=== PATIENT | female | born 1990 | race Two or more races ===

== ENCOUNTER 2018-03-14 21:36 | Emergency (ER) | payer OTHER ==
[~2018-03-14] VITALS: Ht 167.6 cm; Wt 93.9 kg
[2018-03-15] MEDS ORDERED: MIRALAX510 GM PO (06:15)
== END 2018-03-15 06:23 ==
LOC: ER 21:36
DX: K59.09 Other constipation (principal)

== ENCOUNTER 2018-04-21 14:30 | Emergency (ER) | payer OTHER ==
[~2018-04-21] VITALS: Ht 167.6 cm; Wt 96.6 kg
[~2018-04-21 14:30] MED LIST: MIRALAX510 GM PO
[2018-04-21] MEDS ORDERED: PRENATABS FA T1 EACH (14:52)
== END 2018-04-21 23:56 | disposition home or self-care (01) ==
LOC: ER 14:30
DX: O26.892 Other specified pregnancy related conditions, second trimester (principal); R10.2 Pelvic and perineal pain; O23.32 Infections of other parts of urinary tract in pregnancy, second trimester; Z34.02 Encounter for supervision of normal first pregnancy, second trimester

== ENCOUNTER 2018-09-29 02:58 | Inpatient (IN) | payer OTHER ==
[~2018-09-29] VITALS: Ht 167.6 cm; Wt 2.7 kg
[~2018-09-29 02:58] MED LIST changes: +PRENATABS FA T1 EACH
== END 2018-10-02 15:04 | DRG 788 ==
LOC: OBS/DEL 02:58 → LDR 04:17 → OB/GYN 04:17 → O/R 20:25 → OB/GYN 21:49
PROVIDERS: ADMIT Specialist
PROC: 4A0HXFZ Measurement of Products of Conception, Cardiac Rhythm, External Approach (ICD-10-PCS; 2018-09-29)
PROC: 10D00Z1 Extraction of Products of Conception, Low, Open Approach (ICD-10-PCS; principal; 2018-09-29 19:00)
DX: O82 Encounter for cesarean delivery without indication (principal); O62.1 Secondary uterine inertia; O24.410 Gestational diabetes mellitus in pregnancy, diet controlled; Z3A.38 38 weeks gestation of pregnancy; Z37.0 Single live birth